=== PATIENT | female | born 1985 | race Caucasian/White ===

== ENCOUNTER 2018-10-26 16:37 | Outpatient (CLI) | payer MEDICAID ==
[2009-10-08 07:53] VITALS: BMI 29.9
[2018-10-26 18:07] LABS: BASOPHILS 0.2 % (0-2); EOSINOPHILS 1.4 % (0-7); HEMATOCRIT 37.8 % (36.0-48.0); HEMOGLOBIN 13.2 g/dL (12-16); IMMATURE GRANULOCYTES 0.3 % (0-5); LYMPHOCYTES 24.2 % (15-50); MCHC 34.9 g/dL (31.0-37.0); MCV 91.7 fL (80.0-100.0); MEAN PLATELET VOLUME 11.2 fL (7.4-10.4); MONOCYTES 6.7 % (2-11); NEUTROPHILS 67.2 % (40-80); RBC 4.12 10x6/uL (4.00-5.40); RDW 12.8 % (11.5-14.5); WBC 11.7 10x3/uL (4.8-10.8)
[2018-10-26 18:08] LABS: PLATELET COUNT 138 10x3/uL (130-400)
[2018-10-26 18:37] LABS: ALKALINE PHOSPHATASE 139 U/L (46-116); ALT (SGPT) 25 U/L (10-68); BILIRUBIN - DIRECT 0.03 mg/dL (0.00-0.30); BILIRUBIN - INDIRECT 0.14 mg/dL (0.00-1.00); BILIRUBIN - TOTAL 0.17 mg/dL (0.2-1.3); CALC OSMOLALITY 271 mosm/kg (275-300); CALCIUM 9.1 mg/dL (8.5-10.1); CHLORIDE - SERUM 103 mmol/L (98-107); CREATININE - SERUM 0.6 mg/dL (0.6-1.3); GLUCOSE 77 mg/dL (74-106); PROTEIN - SERUM 6.6 g/dL (6.4-8.2); SODIUM 137 mmol/L (136-145); UREA NITROGEN 9 mg/dL (7-18); eGFR NON AFRICAN AMERICAN > 90 mL/min (90-120)
[2018-10-26] MEDS ORDERED: ZOLOFT50 MG PO (18:37)
[2018-10-26] MEDS ORDERED: PRENAVITE1 TAB PO (18:38)
[2018-10-27 17:35] LABS: PROTEIN - URINE 17.7 mg/dL (0.0-11.9)
== END 2018-10-27 08:00 | disposition home or self-care (01) ==
LOC: D.LDO 16:37 → D.LD 19:30 → D.LDO 10-27 08:00
PROVIDERS: ATTEND Obstetrics & Gynecology
DX: O26.899 Other specified pregnancy related conditions, unspecified trimester (principal); Z3A.00 Weeks of gestation of pregnancy not specified

== ENCOUNTER 2018-11-03 13:30 | Inpatient (IN) | payer MEDICAID ==
[~2018-11-03] VITALS: Ht 170.2 cm; Wt 106.6 kg
[~2018-11-03 13:30] MED LIST: PRENAVITE1 TAB PO; ZOLOFT50 MG PO
[2018-11-09 13:39] LABS: HEMATOCRIT 37.4 % (36.0-48.0); HEMOGLOBIN 13.1 g/dL (12-16); MCV 91.2 fL (80.0-100.0); MEAN PLATELET VOLUME 11.5 fL (7.4-10.4); RBC 4.1 10x6/uL (4.00-5.40); RDW 12.9 % (11.5-14.5); WBC 8.6 10x3/uL (4.8-10.8)
[2018-11-10] VITALS (11 sets, daily range): BP systolic 102–123; BP diastolic 56–78; BMI 36.9
--- NOTE | 2018-11-10 09:35 | NUR ---
FUNDUS IS FIRM, MIDLINE. 2-U. MODERATE RUBRA LOCHIA NOTED ON PAD. NO CLOTS PRESENT. WILL CONTINUE TO MONITOR.
--- NOTE | 2018-11-10 10:05 | NUR ---
received pt to labor and delivery post section from recover room. pt transferred to #[id number] by bed with report received from saurav gardner rn. pt has large white dressing over low transverse incision, c/d/i, pt has ice pack over incision as placed by rr nurse. abdomen palpates soft, fundus firm, u/2, small rubra lochia, no clots expelled. nesbitt cath is draining clear yellow urine, 400 ml's noted in nesbitt bag. pt has bilat scd's on, placed on pump. pt able to wiggle toes, but weakness noted to both legs post spinal post section. pt denies n/v, sob, dizziness or difficulty breathing. ice chips served to pt. sig other called to room. srup x2, call light and phone within reach. pt denies all other needs.
--- NOTE | 2018-11-10 10:30 | NUR ---
fundus firm, u/2, small rubra lochia, no clots. abdomen palpates soft. pt states "i'm not hurting yet, it seems the medicine she gave is helping.". sr up x2, call light and phone within reach.
--- NOTE | 2018-11-10 11:00 | NUR ---
fundus firm, u/1, small rubra lochia, no clots. pericare done with warm wet washcloths, peripads changed. nesbitt cath continues to drain clear yellow urine. see emar for all meds adm by this rn. srup x2, call light and phone within reach.
--- NOTE | 2018-11-10 12:15 | NUR ---
fundus firm, u/1, small rubra lochia, no clots expelled, pericare and nesbitt care done with warm wet washcloths. peripads changed. scd's continue to be on bilat. pt denies nausea after clear liquid diet has been served. pt denies sob, dizziness or difficulty breathing. pt repositioned from her back to right tilt. performs i/s and coughing and deep breathing exercises well. sig other at bedside. pt denies all other needs. sr up x2, call light and phone within reach.
--- NOTE | 2018-11-10 15:15 | NUR ---
phone call made to dr. milligan, with report that pt is wanting to have nesbitt catheter out, ambulate, advance to regular diet. telephone order received to normalize pt, d/c nesbitt cath, hep lock iv, advance to regular diet, will continue with iv toradol until in the morning when md rounds. plan of care discussed with pt.
--- NOTE | 2018-11-10 17:30 | NUR ---
to pt's room, plan of care explained to pt. nesbitt cath removed with 900 ml's urine out. pericare done with warm wet washcloths. peripads/chux changed. iv saline locked.
--- NOTE | 2018-11-10 19:04 | NUR ---
sig other at desk, states pt is requesting pain medication, and a new ice pack. to room, fresh ice pack placed over gown to incision, remains c/d/i. abdomen palpates soft. see emar for meds adm by this rn. pt denies all other needs. srup x 2, call light and phone within reach.
--- NOTE | 2018-11-10 19:14 | NUR ---
SITTING UP IN BED CHANGING DIAPER. VISITORS AT BEDSIDE.
--- NOTE | 2018-11-10 19:39 | NUR ---
PT. AWAKE AND SLIGHTLY DROWSY. IV SALINE LOCK NOTED IN RT WRIST AREA. FOB IN ROOM FEEDING . ABD. DRESSING DRY AND INTACT. LOCHIA RUBRA SCANT. SCDS ON AND FUNCTIONAL. BREATH SOUNDS CLEAR AND BOWEL SOUNDS HYPOACTIVE. PT. REPORTS THAT SHE IS EATING REGULAR FOOD. CAUTIONED AGAINST GREASEY AND SPICEY AND THE BUILD UP OF GAS.PT STATES UNDERSTANDING. SIDE RAILS UP X 2 AND CALL LIGHT WITHIN REACH. PT. AWARE OF NEED TO CALL FOR ASSISTANCE PRIOR TO AMBULATION.
--- NOTE | 2018-11-10 20:56 | NUR ---
LYING ON BACK. DROWSY. FOB IN SHOWER. DISCUSSED POC AND TRANSFER TO 1257 WHEN SHE GETS UP TO VOID. PT. AGREEABLE TO PLAN. IN OPEN CRIB AT BEDSIDE.
--- NOTE | 2018-11-10 22:20 | NUR ---
AMBULATORY TO ROOM 1257 FOR CONTINUED PP CARE. STEADY GAIT NOTED. VSS. PT ORIENTED TO ROOM AND CALL LIGHT USE, VERBALIZES UNDERSTANDING. UP TO BATHROOM, ORAL CARE DONE PER PT. BACK BED. PT STATES THAT SHE WANTS TO SIT ON EDGE OF BED AND MOVE IN ROOM BEFORE GOING TO BED. DENIES DIZZINESS AND NEEDS AT THIS TIME. WILL CONTINUE TO MONITOR AND ASSIST PRN.
--- NOTE | 2018-11-11 00:41 | NUR ---
PT. AWAKENED FOR TORADOL ADMINISTRATION. SALINE LOCK FLUSHED WITH 3CC NORMAL SALINE FROM FLUSH SOLUTION AND TORADOL ADDED TO REMAINING 7 CC AND GIVEN SLOWLY. PT SLEEPING AT FREQ. INTERVALS. FOB SLEEPING ON SOFA. SCD SLEEVES REAPPLIED TO PT. LOWER LEGS AND CONNECTED TO PUMP WHICH IS FUNCTIONAL.
--- NOTE | 2018-11-11 01:59 | NUR ---
LYING ON BACK WITH EYES CLOSED. RESPIRATIONS UNLABORED. FOB SLEEPING ON SOFA.
[2018-11-11 03:00] VITALS: BP 102/55
--- NOTE | 2018-11-11 03:00 | NUR ---
PT. AWAKENED FOR VITAL SIGNS. PT. REPORTS THAT SHE NEEDS TO VOID. SCDS TURNED OFF AND DISCONNECTED. TO BATHROOM WITH MINIMAL ASSISTANCE. GAIT STEADY. VOIDED 700CC ON [place] HAT. LOCHIA RUBRA SCANT. BACK TO BED. SCDS RECONNECTED AND PUMP STARTED. PT. BACK TO SLEEP SHORTLY AFTER GETTING INTO BED. ABD DRESSING DRY AND INTACT. ICE CAP REFILLED AND PLACED OVER DRESSING. FOB REMAINS ASLEEP ON SOFA. EXTRA BLANKET PLACED OVER FOB.
--- NOTE | 2018-11-11 05:08 | NUR ---
LYING ON BACK WITH EYES CLOSED. RESPIRATIONS UNLABORED. DID NOT AWAKEN TO THIS NURSE IN ROOM. FOB LYING ON SOFA.
[2018-11-11 06:08] LABS: RAPID PLASMA REAGIN Non Reactive (Non Reactive)
--- NOTE | 2018-11-11 06:22 | NUR ---
PT. AWAKENED WITH TORADOL ADMINISTRATION. TORADOL GIVEN SLOW IVP.
--- NOTE | 2018-11-11 07:09 | NUR ---
ASSUMED CARE OF THIS PATIENT AT THIS TIME. CURRENTLY SLEEPING, RESP EVEN. INFANT AND FOB IN ROOM. SIDE RAIL UP X2, CALL LIGHT AND PHONE WITHIN REACH. WILL COMPLETE SHIFT ASSESSMENT WHEN AWAKE.
[2018-11-11 07:36] VITALS: BP 104/67
--- NOTE | 2018-11-11 07:36 | NUR ---
PATIENT NOW AWAKE, SITTING UP IN BED. REGULAR DIET SERVED. VS OBTAINED. 2-3/10 INCISIONAL PAIN, DENIES NEEDING ANYTHING AT THIS TIME. UP AD LUIS TO VOID. SCD'S IN PLACE. WILL COMPLETE SHIFT ASSESSMENT AFTER EATING. FOB AND INFANT IN ROOM. SIDERAILS UP X 2, CALL LIGHT AND PHONE WITHIN REACH. PLAN SHOWER AND AMBULATION TODAY. BOTTLEFEEDING, NON SMOKER, 0+, RUBELLA IMMUNE, GBS POSITIVE, TDAP DUE 10/12/2019/
--- NOTE | 2018-11-11 08:36 | NUR ---
FINISHED BREAKFAST. SHIFT ASSESSMENT COMPLETED. DENIES NEEDING ANYTHING. HAS BEEN UP TO VOID WITHOUT DIFFICULTY. HAS BEEN PASSING GAS. INFANT AND FOB IN ROOM. TO CALL IF ANYTHING IS NEEDED. DISCUSSED 24 HOUR USE OF ICE PACK AND USE OF SCDS, WILL NOT NEED IF UP AMBULATING. VERBALIZED UNDERSTANDING.
--- NOTE | 2018-11-11 09:27 | OP ---
PATIENT NAME: ALEYDA BASILIO MEDICAL RECORD: [id number] :87 LOCATION:[id number] ADMISSION DATE:11/10/18 SURGEON: JAMES COSTA MD DATE OF OPERATION: 11/10/2018 PREDELIVERY DIAGNOSES: 1. A 39 weeks' gestation with a history of prior section. 2. Unwanted fertility. POSTOPERATIVE DIAGNOSES: 1. A 39 weeks' gestation with a history of prior section. 2. Unwanted fertility. PROCEDURES: 1. Repeat low transverse section. 2. Bilateral tubal ligation using a [place] technique. SURGEON: James Costa MD TOOL GRINDER OPERATOR EXTERNAL: Alena Agosto. ANESTHESIOLOGIST: Dr. Kovacs. ANESTHETIC: Spinal. FINDINGS: Viable male in vertex presentation, nuchal cord times 1, Apgars were 9 and 9 with a weight of 6 pounds 14 ounces. Unremarkable uterus, tubes, and ovaries bilaterally. SPECIMEN REMOVED: Placenta. SPECIMEN DISPOSITION: Discarded. ESTIMATED BLOOD LOSS: 700 mL. IV FLUIDS: 1700 of crystalloid. URINE OUTPUT: 400 cc. COMPLICATIONS: None. DRAIN: Stallings to gravity. INDICATIONS: The patient is a 33-year-old multiparous female with prior section at 39 weeks. The patient also has undesired fertility. Risks, benefits as well as alternatives to a tubal ligation have been discussed. The patient understood all risks and wishes to proceed. DESCRIPTION OF PROCEDURE: After informed consent was assured, the patient was taken to the operating room where anesthetic was obtained. The patient was prepped and draped and after assessment of the anesthetic, an incision was made over the old scar, carried down to the underlying layer of the fascia. The fascia was opened in the midline and extended out laterally. The rectus bellies were dissected free superiorly and inferiorly, then in the midline. The peritoneum was entered and the peritoneal opening extended. The rectus OPERATIVE REPORT [id number] ALEYDA BASILIO muscles were further stretched and a DeLee all-purpose retractor was inserted. Bladder flap was developed and the bladder blade was now reinserted. The low transverse hysterotomy was performed and the was delivered onto the abdomen atraumatically. The cord was doubly clamped and cut and the passed to the attendant. A cord blood sample and cord gases obtained. The uterus is now removed using a Crede maneuver. All clot and debris was removed from the uterus and the hysterotomy was closed with a running locked stitch of Vicryl. A chromic stitch was used to obtain hemostasis at the left edge where venous bleeding continues. After closure of the hysterotomy, the uterus was exteriorized and the posterior cul-de-sac irrigated and cleared of all clot and debris. The right tube is elevated with a [place] clamp. A window made, and antimesenteric portion and 2 ligatures passed through here. These ligatures were secured distally and proximally and then the intervening segment of tube removed with Metzenbaum scissors. The ostia was cauterized. Attention was directed to the left tube where a window was made in similar fashion underneath the tube. Two ligatures were again passed through this opening and secured proximally and distally with intervening segment of tube excised. The ostia again was cauterized. The uterus was returned to the abdomen, hysterotomy was inspected and found to be hemostatic. Bambi was placed along the edge to maintain hemostasis. The rectus muscle is now reapproximated with loose chromic stitches in the midline. The fascia was closed with looped PDS. Subcutaneous tissues were irrigated, bleeding vessels cauterized, and skin was reapproximated with matilde. A dressing is applied. Sponge, lap, needle counts were correct times 3 by the close of this procedure. TRANSINT:[id number] Voice Confirmation ID: [id number] DOCUMENT ID: [id number] JAMES COSTA MD at 0927 CC: [id number] DICTATION DATE: 11/10/18 0855 [employer] OPERATOR: 11/10/18 0932 [facility] [place] [id number] [place] [address]
--- NOTE | 2018-11-11 09:54 | NUR ---
PERCOCET 10 MG GIVEN PO FOR RELIEF OF 5/10 INCISIONAL CRAMPING SHARP PAIN AFTER DISCUSSING PAIN MANAGEMENT OPTIONS. FOB AND IN ROOM. SIDE RAILS UP X 2, CALL LIGHT IN REACH. ENCOURAGED TO REST FOR NOW. ANTICIPATE SHOWER AND AMBULATION AFTER LUNCH. VERBALIZED UNDERSTANDING. TO CALL IF ANYTHING IS NEEDED.
[2018-11-11 11:23] VITALS: Ht 170.2 cm; Wt 106.6 kg
--- NOTE | 2018-11-11 11:37 | NUR ---
SITTING UP ON EDGE OF BED. SAYS HER PAIN IS BETTER, NOW ABOUT A "3". "I THINK IT IS GAS". ENCOURAGED OOB AMBULATING. IF UNRELIEVED PT INFORMED OF AVAILABLITY OF MEDICATION BUT TO TRY MOVING/AMBULATING FIRST. VERBALIZED UNDERSTANDING. FOB, VISITOR AND IN ROOM.
[2018-11-11 11:39] VITALS: BP 112/71
--- NOTE | 2018-11-11 13:05 | NUR ---
SCHEDULE TORADOL 10 MG GIVEN PO. C/O 09/15 ABDOMINAL CRAMPING SHARP PAIN. IF NOT RELIEVED WITH TORADOL WILL GIVE PERCOCET WHEN DUE. ENCOURAGED OOB TO AMBULATE. VISITORS AND INFANT IN ROOM. REGULAR DIET AT BEDSIDE FOR LUNCH. SIDE RAILS UP X 2, TO CALL WHEN READY TO TAKE A SHOWER. ALL ITEMS ARE FOR SHOWER ARE IN ROOM.
--- NOTE | 2018-11-11 13:58 | NUR ---
SITTING UP IN BED. STILL WITH C/O 5/10 ABDOMINAL CRAMPING/ MARY PAIN. DISCUSSED RELIEF MEASURES FOR GAS. MYLICON 80 MG GIVEN PO AND PERCOCET 10 MG GIVEN PO AFTER DISCUSSING PAIN MANAGEMENT OPTIONS. ENCOURAGE TO TAKE SHOWER SHERYL WHEN SHE FEELS BETTER AND AMBULATE IN WONG. ALSO DISCUSSED LLD POSITION. VERBALIZED UNDERSTANDING. VISITORS IN ROOM WITH .
--- NOTE | 2018-11-11 14:45 | NUR ---
UP TO SHOWER. ASSISTED WITH REMOVING DRESSING LOWER ABDOMEN. NIKKY INTACT WITHOUT ERRYTHEMA. SMALL SEROUSE DRAINAGE NOTED ON DRESSING. INSTRUCTED ON HOW TO CLEAN INCISIONAL AREA. COMPLETE LINEN CHANGE DONE. VISITORS X 3 IN ROOM WITH . PLAN AMBULATIONS IN WONG AFTER SHOWER.
--- NOTE | 2018-11-11 15:29 | NUR ---
COMPLETED SHOWER, AMBULATED AROUND PP DOUGLAS X 1, TOLERATED WELL. 2/10 ABDOMINAL SHARP PAIN. VISITORS IN ROOM, DENIES NEEDING ANYTHING. SITTING ON EDGE OF BED. UP AD ULIS. SIDE RAILS UP X 2, CALL LIGHT IN REACH.
[2018-11-11 15:30] VITALS: BP 100/67
--- NOTE | 2018-11-11 16:55 | NUR ---
SITTING UP IN BED, JUST FINISHED EATING DINNER. INFANT AND VISITOR IN ROOM. DENIES NEEDING ANYTHING. TO CALL IF ANYTHING IS NEEDED. VERBALIZED UNDERSTANDING. CALL LIGHT IN REACH.
--- NOTE | 2018-11-11 17:55 | NUR ---
SITTING UP IN BED TALKING ON PHONE. DENIES NEEDING ANYTHING. CURRENT PAIN 06/18. INFORMED TORADOL WILL BE DUE AT 6:30. VERBALIZED UNDERSTANDING. FOB AND INFANT IN ROOM.
--- NOTE | 2018-11-11 18:32 | NUR ---
SITTING UP IN BED WATCHING TV AND TALKING TO FOB. IN CRIB. SCHEDULE TORADOL 10 MG GIVEN PO. 3/10 INCISIONAL STINGING, CRAMPING. SAYS THE MYLICON HELPED HER GAS PAIN EARLIER. INSTRUCTED SHE CAN HAVE THAT EVERY FOUR HOURS IF NEEDED, JUST ASK. ALSO INSTRUCTED ON US OF ESTRELLA-PAD OVER INCISION AND IMPORTANCE OF CHANGING FREQUENTLY. U/2 FIRM MIDLINE. FRESH WATER GIVEN. REMINDED TO WALK THE WONG THIS PM A COUPLE OF TIMES. VERBALIZED UNDERSTANDING. SIDE RAILS UP X 2, CALL LIGHT IN REACH.
[2018-11-11 18:55] VITALS: BP 103/67
--- NOTE | 2018-11-11 18:55 | NUR ---
PT. LYING IN BED ON BACK. FOB FEEDING INFANT AT PRESENT. PT. DROWSY. RATES INCISION PAIN A 5 OF 10 ON PAIN SCALE. [place] NOTED IN RT. WRIST. NO REDNESS NOR EDEMA NOTED AT SITE. ABD. INCISION NOTED WITH NIKKY. NO DRAINAGE NOR REDNESS NOTED AT SITE. BREATH SOUNDS CLEAR AND BOWEL SOUNDS AUDIBLE. PT. RELATES THAT SHE IS PASSING FLATUS. NO EDEMA NOTED IN LOWER EXTREMITIES AND PT. DENIES ANY LOWER EXTREMITY DISCOMFORT.
--- NOTE | 2018-11-11 19:02 | NUR ---
PAIN MEDICATION GIVEN ORDERED. SIDE RAILS UP X2 AND CALL LIGHT WITHIN REACH.
--- NOTE | 2018-11-11 19:59 | NUR ---
PT. RATES PAIN A 3 OF 10 ON PAIN SCALE. RELATES THAT SHE HAS BEEN WALKING IN HALLWAY WITH HER FOB. PT. CHEERFUL AND ALERT.
--- NOTE | 2018-11-11 21:35 | NUR ---
LYING ON BACK IN BED. FOB ON SOFA. PT. CHEERFUL AND DENIES ANY NEEDS.
--- NOTE | 2018-11-11 23:09 | NUR ---
LYING ON BACK WITH HOB AT 15 DEGREES. PT. AWAKE AND DENIES ANY NEEDS. IN OPEN CRIB AT BEDSIDE. FOB LYING ON SOFA. LIGHTS IN ROOM DIMMED AND TV PLAYING.
[2018-11-12 00:30] VITALS: BP 114/67
--- NOTE | 2018-11-12 00:30 | NUR ---
VITAL SIGNS OBTAINED. PT. LYING ON BACK WITH HOB AT 30 DEGREES. FOB HOLDING . TORADOL GIVEN ORDERED. PT.RATES PAIN A 6 OF 10 ON PAIN SCALE FOR INCISIONAL PAIN. INQUIRED IF PT. DESIRED PAIN MED. PT. AGREEABLE.
--- NOTE | 2018-11-12 00:35 | NUR ---
PAIN MED GIVEN REQUESTED. PT. LYING ON BACK IN BED WITH HOB AT 30 DEGREES. SLIGHTLY DROWSY. SCDS APPLIED AND PUMP ON AND FUNCTIONAL. CAUTIONED PT. TO REMEMBER SCDS WERE ON LEGS PRIOR TO GETTING UP TO BATHROOM. PT. STATED UNDERSTANADING.
--- NOTE | 2018-11-12 01:27 | NUR ---
PT.RATES PAIN A 5 OF 10 ON PAIN SCALE. STATES SHE FEELS LIKE SHE HAS GAS. SIMETHICONE GIVEN ORDERED. LIGHTS IN ROOM DIMMED. LYING ON BACK WITH HOB AT 30 DEGREES. ENCOURAGED PT. TO AMBULATE IN HALLWAY IF GAS PAIN NOT RELIEVED. PT. STATES UNDERSTANDING.
--- NOTE | 2018-11-12 04:05 | NUR ---
LYING ON BACK WITH HOB AT 30 DEGREES. EYES OPEN BUT DENIES ANY NEEDS.
--- NOTE | 2018-11-12 06:28 | NUR ---
PT. AWAKENED FOR TORADOL ADMINISTRATION. AWAKE ONLY BRIEFLY. LYING ON BACK WITH HOB AT 30 DEGREES.
--- NOTE | 2018-11-12 08:04 | NUR ---
LIGHTS OFF, FOB SLEEPING ON COUCH, PT AROUSED EASILY WHEN DOOR OPENED. DESIRES TO SLEEP LONGER, WILL COMPLETE SHIFT ASSESSMENT WHEN AWAKE. IN NURSERY AND DUE TO EAT AT 0830.
--- NOTE | 2018-11-12 09:11 | NUR ---
SITTING UP ON COUCH GETTING READY TO EAT BREAKFAST. 2-3/10 INCISIONAL ACHING. DENIES NEEDING ANYTHING. WILL COMPLETE SHIFT ASSESSMENT AFTER EATING. FOB IN ROOM. INFANT SLEEPING IN CRIB, COLOR PINK, RESPIRATIONS EVEN, PT PLANS TO BOTTLEFEED AT 0930. TO CALL IF ANYTHING IS NEEDED. ANTICIPATE DC HOME TODAY.
[2018-11-12 09:58] VITALS: BP 110/68
--- NOTE | 2018-11-12 10:15 | NUR ---
SHIFT ASSESSMENT WAS COMPLETED. PERCOCET 5 MG GIVEN PO FOR RELIEF OF 4-5/10 INCISIONAL THROBBING/CRAMPING AFTER DISCUSSING PAIN MANAGEMENT OPTIONS, SAYS THE 10 MG TABS WORK BETTER BUT SHE WILL TRY A 5 MG. INSTRUCTED SHE WILL MOST LIKELY BE SENT HOME WITH 7.5 MG TABS OF PERCOCET AND MOTRIN. DISCUSSED RELIEF MEASURES FOR TRACE LE EDEMA. VERBALIZED UNDERSTANDING. INFANT HAS DC ORDERS. ANTICIPATE DC HOME OF PT TODAY.
--- NOTE | 2018-11-12 10:30 | NUR ---
DR COSTA VISITED.
[2018-11-12] MEDS ORDERED: PERCOCET 7.5/321 TAB PO (10:35)
[2018-11-12] MEDS ORDERED: IBUPROFEN800 MG PO (10:36)
--- NOTE | 2018-11-12 11:04 | NUR ---
PAIN IMPROVED NOW 06/18. DC INSTRUCTIONS COMPLETED TO INCLUDE POST OP CARE, S&S INFECTION, PP DEPRESSION, DANGER SIGNS, MEDICATION ADMINISTRATION, BREASTCARE, BOTTLEFEEDING AND F/U. QUESTIONS ANSWERED. WAITING IN INFANT DC POST CIRCUMCISION. PRESCRIPTIONS AND WRITTEN DC INSTRUCTIONS GIVEN TO PT.
--- NOTE | 2018-11-12 12:20 | NUR ---
DC'D VIA WHEELCHAIR TO CAR. IN CARSEAT. FOB DRIVING. ALL BELONGINGS REMOVED FROM ROOM. HAS PRESCRIPTIONS AND DC INSTRUCTIONS.
== END 2018-11-12 12:20 | disposition home or self-care (01) | DRG 785 ==
LOC: D.LD 11-10 05:29
PROVIDERS: ADMIT Obstetrics & Gynecology; ATTEND Obstetrics & Gynecology
PROC: 10D00Z1 Extraction of Products of Conception, Low, Open Approach (ICD-10-PCS; principal; 2018-11-10 07:30)
PROC: 0UB70ZZ Excision of Bilateral Fallopian Tubes, Open Approach (ICD-10-PCS; 2018-11-10 07:30)
DX: O99.824 Streptococcus B carrier state complicating childbirth (principal); Z3A.39 39 weeks gestation of pregnancy; Z37.0 Single live birth; O34.211 Maternal care for low transverse scar from previous cesarean delivery; Z30.2 Encounter for sterilization; Z30.09 Encounter for other general counseling and advice on contraception; Z87.891 Personal history of nicotine dependence